=== PATIENT | male | born 1955 | race Caucasian/White ===

== ENCOUNTER 2016-09-11 13:28 | Day surgery (SDC) | payer OTHER ==
[~2016-09-11 13:28] MED LIST: IV START KIT ONE; LACTATED RINGERS 1,000 ML ONE
[2016-09-11] MEDS ORDERED: FENTANYL 100 MCG/2 ML VIAL ONE (13:57)
[2016-09-11] MEDS ORDERED: PROPOFOL 40 ML IV ONE (13:57)
[2016-09-11] MEDS ORDERED: LACTATED RINGERS 1,000 ML IV SCH (15:15)
--- NOTE | 2016-09-16 10:43 | SURGPATH ---
[facility] [address] [place] [id number] Patient Name: HUNG SAAB MR#: [id number] : 1955 Gender: M Specimen #: [id number] Collected: 09/11/2016 Received: 09/13/2016 Reported: 09/16/2016 Submitting Phys: NYA JARRETT Copy To Phys: DIANE CASTILLO [facility] Clinical History / Pre-Operative Diagnosis: Screening; diverticulosis Specimen Source / Surgical Procedure Performed: #1-transverse colon polyp; #2-distal ileum polyp Interpretation: 1. TRANSVERSE COLON, POLYP, BIOPSY: - TUBULAR ADENOMA 2. DISTAL ILEUM, POLYP, BIOPSY: - NO PATHOLOGIC DIAGNOSIS Electronically Signed Out Orlando Mancera M.D. Gross Description: #1 The specimen is received in a formalin filled container labeled with the patient's name and "transverse colon polyp". Three serrano biopsies are 0.2, 0.3 and 0.4 cm. Totally embedded in cassette #1. #2 The specimen is received in a formalin filled container labeled with the patient's name and "distal ileum biopsy". Two moss-serrano biopsies are each 0.3 cm. Totally embedded in cassette #2. Nathalia De La O Microscopic Description: 1. Levels reveal colonic mucosa surfaced by tubular glands with focal adenomatous features. High grade dysplasia and malignancy are not present. 2. Levels reveal small intestinal mucosa with a villous architecture and prominent lymphoid aggregates consistent with ileum. Ulceration, acute inflammation, granulomas, dysplasia and malignancy are not present. 1: 22882 2: 58707 D12.3
== END 2016-09-11 15:45 | disposition home or self-care (01) ==
LOC: SDC 13:28
PROVIDERS: ATTEND Surgery
PROC: 0DBB8ZX Excision of Ileum, Via Natural or Artificial Opening Endoscopic, Diagnostic (ICD-10-PCS; principal; 2016-09-11)
PROC: 0DBL8ZX Excision of Transverse Colon, Via Natural or Artificial Opening Endoscopic, Diagnostic (ICD-10-PCS; 2016-09-11)
DX: Z12.11 Encounter for screening for malignant neoplasm of colon (principal); D12.3 Benign neoplasm of transverse colon; K57.30 Diverticulosis of large intestine without perforation or abscess without bleeding; K51.40 Inflammatory polyps of colon without complications; N40.0 Benign prostatic hyperplasia without lower urinary tract symptoms; I10 Essential (primary) hypertension; F32.9 Major depressive disorder, single episode, unspecified; R73.9 Hyperglycemia, unspecified; G47.30 Sleep apnea, unspecified; E29.1 Testicular hypofunction; F07.81 Postconcussional syndrome; Z79.82 Long term (current) use of aspirin; Z88.5 Allergy status to narcotic agent; Z88.8 Allergy status to other drugs, medicaments and biological substances; Z88.6 Allergy status to analgesic agent; E66.01 Morbid (severe) obesity due to excess calories; Z68.37 Body mass index [BMI] 37.0-37.9, adult
CPT/HCPCS: 45380; J3010; J7120